=== PATIENT | male | born 1960 | race Caucasian/White ===

== ENCOUNTER 2016-05-21 19:46 | Emergency (ER) | payer OTHER ==
[~2016-05-21] VITALS: Ht 177.8 cm; Wt 86.1 kg
[~2016-05-21 19:46] MED LIST: AMIL5 PO; AMLO5TAB22 PO; CHLO25 PO; FURO20 PO; ONDA1TAB16 PO; OXYC10TA8 PO; XANA0.5T PO
[2016-05-21 19:54] VITALS: BP 140/78; PULSE 81; RESP 18; TEMP 98.5; O2SAT 97
[2016-05-21] MEDS ORDERED: ONDANSETRON HCL 4 MG/2 ML VIAL IVP ONE (20:15)
[2016-05-21] MEDS ORDERED: SODIUM CHLOR 0.9% 250 ML INJ 250 ML IV ONE (20:15)
[2016-05-21] MEDS ORDERED: SODIUM CHLORIDE 0.9% FLUSH 10 ML FLUSH IV FLUSH PRN (20:15)
[2016-05-21] MEDS ORDERED: LACTULOSE SYRUP 20 GM/30 ML CUP PO ONE (20:15)
[2016-05-21 20:19] LABS: AUTOMATED NEUTROPHIL # 2.9 TH/MM3 (1.8-7.7); BASOPHIL # 0.2 TH/MM3 (0-0.2); BASOPHIL % 4.2 % (0.0-2.0); EOSINOPHIL # 0.2 TH/MM3 (0-0.4); EOSINOPHIL % 3.9 % (0.0-4.0); HEMATOCRIT 39.8 % (39.0-51.0); LYMPH % 16.5 % (9.0-44.0); LYMPHOCYTE # 0.8 TH/MM3 (1.0-4.8); MEAN CELL VOLUME 94.3 FL (80.0-100.0); MEAN CORPUSCULAR HEMOGLOBIN 31.8 PG (27.0-34.0); MEAN CORPUSCULAR HGB CONC 33.7 % (32.0-36.0); MONO % 14.4 % (0.0-8.0); PLATELET COUNT 77 TH/MM3 (150-450); RED BLOOD COUNT 4.21 MIL/MM3 (4.50-5.90); WHITE BLOOD COUNT 4.8 TH/MM3 (4.0-11.0)
[2016-05-21 20:21] VITALS: BP 140/78; PULSE 89; RESP 18; TEMP 98.5; O2SAT 97
[2016-05-21 20:22] LABS: HEMO FLAGS AUTO DIFF
[2016-05-21 20:27] LABS: CHLORIDE 104 MEQ/L (98-107); POTASSIUM 3.4 MEQ/L (3.5-5.1); SODIUM (NA) 140 MEQ/L (136-145)
[2016-05-21 20:28] VITALS: O2SAT 97
[2016-05-21 20:31] LABS: ANION GAP 9 MEQ/L (5-15); BICARBONATE 26.8 MEQ/L (21.0-32.0); BLOOD UREA NITROGEN 10 MG/DL (7-18); INTERNATIONAL NORMALIZED RATIO 1.1 RATIO; PROTHROMBIN TIME - PATIENT 12.1 SEC (9.8-11.6)
[2016-05-21 20:34] LABS: ALT (GPT) 50 U/L (12-78); AST (GOT) 68 U/L (15-37); GLOMERULAR FILTRATION RATE 78 ML/MIN (>89)
[2016-05-21 20:36] LABS: TOTAL BILIRUBIN ADULT 1.7 MG/DL (0.2-1.0)
[2016-05-21 20:37] LABS: ALKALINE PHOSPHATASE 89 U/L (45-117)
[2016-05-21] MEDS ORDERED: LACT10SO PO (20:40)
[2016-05-21] MEDS ORDERED: FURO1TAB62 PO (20:40)
[2016-05-21] MEDS ORDERED: AMLO5 PO (20:40)
[2016-05-21] MEDS ORDERED: ALPR.5 PO (20:42)
[2016-05-21] MEDS ORDERED: OXYC-395 PO (20:42)
[2016-05-21] MEDS ORDERED: DIATRIZOATE MEGLUM/DIATRIZOATE SOD 9 ML CUP ONE (20:43)
[2016-05-21 20:54] LABS: PLATELET ESTIMATE SMEAR LOW (NORMAL); PLATELET MORPHOLOGY NORMAL (NORMAL); SCAN/DIFF AUTO DIFF CONFIRMED
[2016-05-21] MEDS ORDERED: IOHEXOL 350 MG/ML 10 ML VIAL (for RAD DIAG) IV ONE (22:20)
[2016-05-21 22:30] VITALS: BP 150/77; PULSE 100; RESP 20; O2SAT 96
--- NOTE | 2016-05-21 22:33 | RADHPO ---
EXAM DATE/TIME: 05/21/2016 22:03 CORRECTION Corrected on: May 21, 2016; [facility] COMPARISON: No previous studies available for comparison. INDICATIONS : Abdominal pain. Constipation. Difficulty urinating. IV CONTRAST: 100 cc Omnipaque 350 (iohexol) IV ORAL CONTRAST: Partial prescribed oral contrast ingested. RADIATION DOSE: 13.83 CTDIvol (mGy) MEDICAL HISTORY : Hypertension. SURGICAL HISTORY : Cholecystectomy. ENCOUNTER: Initial ACUITY: 4 - 6 days PAIN SCALE: 10/10 LOCATION: Bilateral abdomen and pelvis. TECHNIQUE: Volumetric scanning of the abdomen and pelvis was performed. Using automated exposure control and ad justment of the mA and/or kV according to patient size, radiation dose was kept as low as reasonably achievable to obtain optimal diagnostic quality images. FINDINGS: LOWER LUNGS: There is a minimal right effusion. There is mild scarring. LIVER: The liver is cirrhotic in appearance with diffuse heterogeneity and lobular contours with no definite focal mass there is a small amount of gas noted in the central biliary system with no definite dilat ation. Status post cholecystectomy. SPLEEN: Mild splenomegaly with no focal mass. There is a small amount of adjacent ascitic fluid. PANCREAS: Within normal limits. KIDNEYS: Normal in size and shape. There is no solid mass, stone or hydronephrosis. There are bilateral cysti c structures. ADRENAL GLANDS: Within normal limits. VASCULAR: There is no aortic aneurysm. BOWEL/MESENTERY: The gas pattern is abnormal with a moderate amount of stool in the colon. There is dilatation of port ions of the ascending and transverse colon with multiple air-fluid levels. There is no free air or dr ainable fluid collection. There are small fluid collections and portions of the pelvis. The small bow el is nondilated. There are several air-fluid levels. There is increased density and portions of the mesentery. ABDOMINAL WALL: Status post prior anterior abdominal wall hernia with apparent mesh in place. RETROPERITONEUM: There is no lymphadenopathy. BLADDER: No wall thickening or mass. REPRODUCTIVE: Within normal limits. INGUINAL: There is no lymphadenopathy or hernia. MUSCULOSKELETAL: Within normal limits for patient age. CONCLUSION: 1. Abnormal bowel gas pattern with dilatation of the ascending and transverse colon with multiple air -fluid levels. There is a moderate amount of stool present. There is mild apparent inflammatory lopez e in portions of the mesentery with small amount of free fluid. 2. Cirrhotic appearing liver with diffuse heterogeneity. 3. Status post cholecystectomy with small amount of central intrahepatic biliary air. 4. Mild splenomegaly. 5. Status post hernia repair with mesh in place. 6. Minimal right pleural effusion. Andrez Lam MD on May 21, 2016 at 22:24 Board Certified Radiologist. This report was verified electronically. Andrez Lam MD on May 21, 2016 at 22:52 Board Certified Radiologist. This report was verified electronically.
[2016-05-21] MEDS ORDERED: KETOROLAC TROMETHAMINE 30 MG/ML (IVP) VIAL IV PUSH ONE (22:45)
[2016-05-21] MEDS ORDERED: MAGNESIUM HYDROXIDE SUSP 30 ML CUP PO ONE (23:00)
[2016-05-21] MEDS ORDERED: SOD PHOSPHATE/SOD BIPHOSPHATE (ADULT) ENEMA 133ML RECTAL ONE (23:00)
--- NOTE | 2016-05-21 23:16 | PD ---
HPI Chief Complaint: GI Complaint Time Seen by Provider: 20:06 Travel History International Travel<30 days: No Contact w/Intl Traveler<30days: No Traveled to known affect area: No History of Present Illness HPI Patient is a 55 year old male who comes in complaining of abdominal pain. He says he has not had a bowel movement in 5-10 days. He says a few days ago he passed a small, hard piece of stool, but nothing else. He says this started after he took some oxycodone that a dentist gave him. He has not had any vomiting. He says he has pain throughout his abdomen and feels like something is "blocking" him. He denies fever or chills. PFSH Past Medical History Diminished Hearing: Yes Gastrointestinal Disorders: Yes Hypertension: Yes Immunizations Current: Yes Tetanus Vaccination: Unknown Influenza Vaccination: Yes ?: Not Past Surgical History Abdominal Surgery: Yes (BILE STENTS) Cholecystectomy: Yes Social History Alcohol Use: Yes (THIS WEEK) Tobacco Use: Yes Substance Use: No Allergies-Medications (Allergen,Severity, Reaction): Coded Allergies: No Known Allergies (Unverified , 05/22/16) Reported Meds & Prescriptions Reported Meds & Active Scripts Active Reported Oxycodone (Oxycodone HCl) 10 Mg Tab 10 Mg PO Q4H PRN Xanax (Alprazolam) 0.5 Mg Tab 0.5 Mg PO Q6H PRN Lactulose Liq (Lactulose) 10 Gm/15 Ml Soln 30 Ml PO Q6H PRN Norvasc (Amlodipine Besylate) 5 Mg Tab 5 Mg PO DAILY Lasix (Furosemide) 20 Mg Tab 20 Mg PO DAILY Review of Systems Except as stated in HPI: all other systems reviewed are Neg General / Constitutional: No: Fever, Chills HENT: No: Headaches Cardiovascular: No: Chest Pain or Discomfort Respiratory: No: Shortness of Breath Gastrointestinal: Positive: Nausea, Abdominal Pain, Constipation, No: Vomiting Genitourinary: No: Dysuria Skin: No Rash, No Change in Pigmentation Neurologic: No: Weakness, Dizziness Physical Exam Narrative GENERAL: Awake and alert, in no acute distress. SKIN: Focused skin assessment warm/dry. HEAD: Atraumatic. Normocephalic. EYES: Pupils equal and round. No scleral icterus. ENT: Mucous membranes pink and moist. NECK: Trachea midline. No JVD. CARDIOVASCULAR: Regular rate and rhythm. No murmur appreciated. RESPIRATORY: No accessory muscle use. Clear to auscultation. Breath sounds equal bilaterally. GASTROINTESTINAL: Abdomen soft, nondistended. Mild diffuse tenderness throughout the abdomen, no rebound or guarding. MUSCULOSKELETAL: No obvious deformities. No clubbing. No cyanosis. No edema. NEUROLOGICAL: Awake and alert. No obvious cranial nerve deficits. Motor grossly within normal limits. Normal speech. PSYCHIATRIC: Appropriate mood and affect; insight and judgment normal. Data Data Last Documented VS Vital Signs Date Time Temp Pulse Resp B/P Pulse Ox O2 Delivery O2 Flow Rate FiO2 05/22/16 00:27 20 05/22/16 00:20 95 134/74 05/21/16 22:30 96 Room Air 05/21/16 20:21 98.5 Orders Complete Blood Count With Diff (05/21/16 20:07) Comprehensive Metabolic Panel (05/21/16 20:07) Prothrombin Time / Inr (Pt) (05/21/16 20:07) Act Partial Throm Time (Ptt) (05/21/16 20:07) Ct Abd/Pel W Iv Contrast(Rout) (05/21/16 20:07) Iv Access Insert/Monitor (05/21/16 20:07) Ecg Monitoring (05/21/16 20:07) Oximetry (05/21/16 20:07) Ondansetron Inj (Zofran Inj) (05/21/16 20:15) Sodium Chloride 0.9% Flush (Ns Flush) (05/21/16 20:15) Lactulose Liq (Lactulose Liq) (05/21/16 20:15) Sodium Chlor 0.9% 250 Ml Inj (Ns 250 Ml (05/21/16 20:15) Oral Contrast - Adult (05/21/16 20:32) Diatrizoate Liq ( Gastroview Liq) (05/21/16 20:43) Iohexol 350 Inj (Omnipaque 350 Inj) (05/21/16 22:20) Ketorolac Inj (Toradol Inj) (05/21/16 22:45) Fleets Enema (Adult) (Fleets Enema (Adul (05/21/16 23:00) Magnesium Hydroxide Liq (Milk Of Magnesi (05/21/16 23:00) Peg (High)/E-Lyte Liq (Colyte Liq) (05/22/16 00:15) Labs Laboratory Tests Test 05/21/16 20:15 White Blood Count 4.8 TH/MM3 Red Blood Count 4.21 MIL/MM3 Hemoglobin 13.4 GM/DL Hematocrit 39.8 % Mean Corpuscular Volume 94.3 FL Mean Corpuscular Hemoglobin 31.8 PG Mean Corpuscular Hemoglobin 33.7 % Concent Red Cell Distribution Width 14.0 % Platelet Count 77 TH/MM3 Mean Platelet Volume 8.0 FL Neutrophils (%) (Auto) 61.0 % Lymphocytes (%) (Auto) 16.5 % Monocytes (%) (Auto) 14.4 % Eosinophils (%) (Auto) 3.9 % Basophils (%) (Auto) 4.2 % Neutrophils # (Auto) 2.9 TH/MM3 Lymphocytes # (Auto) 0.8 TH/MM3 Monocytes # (Auto) 0.7 TH/MM3 Eosinophils # (Auto) 0.2 TH/MM3 Basophils # (Auto) 0.2 TH/MM3 CBC Comment AUTO DIFF Differential Comment AUTO DIFF CONFIRMED Platelet Estimate LOW Platelet Morphology Comment NORMAL Prothrombin Time 12.1 SEC Prothromb Time International 1.1 RATIO Ratio Activated Partial 29.0 SEC Thromboplast Time Sodium Level 140 MEQ/L Potassium Level 3.4 MEQ/L Chloride Level 104 MEQ/L Carbon Dioxide Level 26.8 MEQ/L Anion Gap 9 MEQ/L Blood Urea Nitrogen 10 MG/DL Creatinine 1.00 MG/DL Estimat Glomerular Filtration 78 ML/MIN Rate Random Glucose 98 MG/DL Calcium Level 8.8 MG/DL Total Bilirubin 1.7 MG/DL Aspartate Amino Transf 68 U/L (AST/SGOT) Alanine Aminotransferase 50 U/L (ALT/SGPT) Alkaline Phosphatase 89 U/L Total Protein 7.8 GM/DL Albumin 3.2 GM/DL [facility] Medical Decision Making Medical Screen Exam Complete: Yes Emergency Medical Condition: Yes Medical Record Reviewed: Yes Differential Diagnosis Constipation versus obstruction versus colitis Narrative Course Patient is a 55-year-old male comes in complaining of abdominal pain and constipation. Exam shows mild diffuse tenderness throughout the abdomen. IV established, labs sent. Labs show an elevated total bilirubin, likely due to his chronic liver cirrhosis. Given lactulose. CT abdomen and pelvis performed shows a some dilatation of his colon with large amount of stool, some air-fluid levels. There is also mention of a small amount of free fluid. I spoke with Dr. Maguire, the radiologist, and he says he feels this is likely constipation and due to his liver disease. Last 24 hours Impressions Abdomen/Pelvis CT 05/21/162006 Signed Impressions: Service Date/Time: May 22:03 - CONCLUSION: 1. Abnormal bowel gas pattern with dilatation of the ascending and transverse colon with multiple air-fluid levels. There is a moderate amount of stool present. There is mild apparent inflammatory change in portions of the mesentery with small amount of free fluid. 2. Cirrhotic appearing liver with diffuse heterogeneity. 3. Status post cholecystectomy with small amount of central intrahepatic biliary air. 4. Mild splenomegaly. 5. Status post hernia repair with mesh in place. 6. Minimal right pleural effusion. Andrez Lam MD Patient given an enema and milk of magnesia. Patient had a small bowel movement, but still feels like he needs to go. Patient offered admission, however he says he would like to try and go home and have a bowel movement there. We'll give him a prescription for GoLYTELY. Patient told that if he does not have a bowel movement tomorrow or if he gets worse at any time he needs to return immediately. He understands these instructions and is comfortable with discharge at this time. Diagnosis Primary Impression: Constipation Qualified Code: K59.00 - Constipation, unspecified constipation type Patient Instructions: Constipation (ED), General Instructions Additional Instructions: If you do not have a bowel movement tomorrow after taking the medication, return to the ED immediately. If your symptoms worsen at any time, return immediately. Follow up with your doctor. Avoid opiate pain medication. Disposition: DISCHARGE HOME Condition: Stable Marilee Mccray MD May 21, 2016 23:16
[2016-05-22] MEDS ORDERED: PEG (High)/E-LYTE SOLN 4000 ML BTL PO ONE (00:15)
[2016-05-22 00:20] VITALS: BP 134/74
[2016-05-22 00:27] VITALS: RESP 20
== END 2016-05-22 00:29 | disposition home or self-care (01) ==
LOC: PHED 19:46
DX: K59.00 Constipation, unspecified (principal)
CPT/HCPCS: 74177; 80053; 85025; 85610; 85730; 96361; 96374; 96375; J1885; J2405; J7050; Q9963; Q9967

== ENCOUNTER 2016-05-22 12:16 | Inpatient (IN) | payer OTHER, MEDICARE ==
[2016-05-22] VITALS (14 sets, daily range): BP systolic 142–167; BP diastolic 66–84; PULSE 76–88; RESP 11–19; TEMP 98.2–98.6; O2SAT 90–97
[~2016-05-22] VITALS: Ht 177.8 cm; Wt 83.2 kg
[~2016-05-22 12:16] MED LIST changes: +ALPR.5 PO; -AMIL5 PO; +AMLO5 PO; -AMLO5TAB22 PO; -CHLO25 PO; +FURO1TAB62 PO; -FURO20 PO; +LACT10SO PO; -ONDA1TAB16 PO; +OXYC-395 PO; -XANA0.5T PO
--- NOTE | 2016-05-22 12:44 | PD ---
HPI Chief Complaint: GI Complaint Time Seen by Provider: 12:27 Travel History International Travel<30 days: No Contact w/Intl Traveler<30days: No Traveled to known affect area: No History of Present Illness HPI 55 year-old man who presents to the emergency department complaining of worsening abdominal pain and distention. States he's not had a bowel movement for the past 5 or 6 days ever since he took oxycodone as prescribed by his dentist. He's had worsening severe abdominal pain. He went to the emergency room last night and had a CT scan that showed abnormal bowel gas pattern with dilatation of the ascending and transverse colon of multiple air-fluid levels a moderate amount of stool. Some inflammatory changes and portions of the mesentery and a small amount of free fluid. Patient has a history of cirrhosis , he takes Lasix and lactulose. He was treated yesterday with an enema and given a prescription for GoLYTELY. He states he started out last night but then started having vomiting and worsening abdominal distention and so he returned today. States he's had some trouble constipation the remote past, not regularly. His only abdominal surgery was a previous open cholecystectomy. History Past Medical History Narrative Medical Cirrhosis Hypertension Social History Alcohol Use: Yes (THIS WEEK) Tobacco Use: Yes Allergies-Medications (Allergen,Severity, Reaction): Coded Allergies: No Known Allergies (Unverified , 05/22/16) Reported Meds & Prescriptions Reported Meds & Active Scripts Active Reported Oxycodone (Oxycodone HCl) 10 Mg Tab 10 Mg PO Q4H PRN Xanax (Alprazolam) 0.5 Mg Tab 0.5 Mg PO Q6H PRN Lactulose Liq (Lactulose) 10 Gm/15 Ml Soln 30 Ml PO Q6H PRN Norvasc (Amlodipine Besylate) 5 Mg Tab 5 Mg PO DAILY Lasix (Furosemide) 20 Mg Tab 20 Mg PO DAILY Review of Systems Except as stated in HPI: all other systems reviewed are Neg Physical Exam Narrative GENERAL: 55 year-old man, uncomfortable appearing, nontoxic. SKIN: Focused skin assessment warm/dry. CARDIOVASCULAR: Regular rate and rhythm. No murmur appreciated. RESPIRATORY: No accessory muscle use. Clear to auscultation. Breath sounds equal bilaterally. GASTROINTESTINAL: Abdomen with tense distention, diffuse tenderness. Well- healed right upper quadrant incision. MUSCULOSKELETAL: No obvious deformities. Chronic pitting edema both lower extremities. Dark skin discoloration both extremities. NEUROLOGICAL: Awake and alert. No obvious cranial nerve deficits. Motor grossly within normal limits. Normal speech. PSYCHIATRIC: Appropriate mood and affect; insight and judgment normal. Data Data Last Documented VS Vital Signs Date Time Temp Pulse Resp B/P Pulse Ox O2 Delivery O2 Flow Rate FiO2 05/22/16 13:15 16 05/22/16 12:23 98.2 87 158/[address] Abd/Pel W/O Iv Contrast (05/22/16 ) Complete Blood Count With Diff (05/22/16 12:38) Comprehensive Metabolic Panel (05/22/16 12:38) Lipase (05/22/16 12:38) Lactic Acid (05/22/16 12:38) Act Partial Throm Time (Ptt) (05/22/16 12:38) Prothrombin Time / Inr (Pt) (05/22/16 12:38) Iv Access Insert/Monitor (05/22/16 12:38) Sodium Chlorid 0.9% 500 Ml Inj (Ns 500 M (05/22/16 12:45) Ondansetron Inj (Zofran Inj) (05/22/16 12:45) Morphine Inj (Morphine Inj) (05/22/16 12:45) Drug Screen, Random Urine (05/22/16 13:56) Urinalysis - C+S If Indicated (05/22/16 13:57) Consult General Surgery (05/22/16 ) Midazolam Inj (Versed Inj) (05/22/16 14:00) Maicol-Gastric Tube Insert/Mon (05/22/16 13:59) (Hub Use Only)Inp Phy Cons/Ref (05/22/16 ) Labs Laboratory Tests Test 05/22/16 05/22/16 12:40 12:50 White Blood Count 5.5 TH/MM3 Red Blood Count 4.51 MIL/MM3 Hemoglobin 14.2 GM/DL Hematocrit 42.6 % Mean Corpuscular Volume 94.4 FL Mean Corpuscular Hemoglobin 31.4 PG Mean Corpuscular Hemoglobin 33.3 % Concent Red Cell Distribution Width 14.3 % Platelet Count 94 TH/MM3 Mean Platelet Volume 8.4 FL Neutrophils (%) (Auto) 80.7 % Lymphocytes (%) (Auto) 7.3 % Monocytes (%) (Auto) 9.2 % Eosinophils (%) (Auto) 1.0 % Basophils (%) (Auto) 1.8 % Neutrophils # (Auto) 4.4 TH/MM3 Lymphocytes # (Auto) 0.4 TH/MM3 Monocytes # (Auto) 0.5 TH/MM3 Eosinophils # (Auto) 0.1 TH/MM3 Basophils # (Auto) 0.1 TH/MM3 CBC Comment AUTO DIFF Differential Comment AUTO DIFF CONFIRMED Platelet Estimate LOW Platelet Morphology Comment NORMAL Prothrombin Time 12.8 SEC Prothromb Time International 1.2 RATIO Ratio Activated Partial 26.3 SEC Thromboplast Time Sodium Level 139 MEQ/L Potassium Level 3.7 MEQ/L Chloride Level 102 MEQ/L Carbon Dioxide Level 23.2 MEQ/L Anion Gap 14 MEQ/L Blood Urea Nitrogen 11 MG/DL Creatinine 1.00 MG/DL Estimat Glomerular Filtration 78 ML/MIN Rate Random Glucose 104 MG/DL Calcium Level 9.0 MG/DL Total Bilirubin 2.5 MG/DL Aspartate Amino Transf 79 U/L (AST/SGOT) Alanine Aminotransferase 53 U/L (ALT/SGPT) Alkaline Phosphatase 93 U/L Total Protein 7.9 GM/DL Albumin 3.2 GM/DL Lipase 126 U/L Lactic Acid Level 2.9 mmol/L MDM Medical Decision Making Medical Screen Exam Complete: Yes Emergency Medical Condition: Yes Interpretation(s) LABS: CBC remarkable for platelet count of 94, absolute lymphocyte count of 400 CMP remarkable for total bili 2.5, Lactate 2.9 Lipase normal INR 1.2 CT abdomen and pelvis: Abnormal colon with distended: Abrupt caliber change in the region of the distal sigmoid colon are per rectum. Worsened: Is an abnormal configuration in the caliber changes very abrupt. Uncertain etiology. Large amount of stool proximal to the caliber change. Abnormal configuration of the small bowel suspicious for adhesions. Thickening partially calcified or on the anterior abdominal wall which may be related to prior surgery. Cirrhosis. Bilateral pleural effusions. Differential Diagnosis Bowel obstruction, obstipation, colitis, SBP, ascites, other Narrative Course Medical decision making INITIAL: This a 55-year-old man who presents to the emergency department worsening abdominal pain, constipation, and distention. Review of CT from earlier shows findings a could be concerning for bowel obstruction. Patient asked about worsening distention and vomiting with attempts at using GoLYTELY. At this point, I think it's reasonable to repeat the CT scan to see if there is any kind of surgical emergency developing despite the fact that he's had one very recently. We'll avoid a second dose of IV contrast in 24 hours. We'll give a small dose of IV fluids. Pain medicine. Check labs. Admission. Physician Communication Physician Communication Spoke with Dr. Astorga. He reviewed CT scan. Recommends admission to [place], avoid opiates, he will consult on patient. Diagnosis Primary Impression: Large bowel obstruction Jj Barrientos MD May 22, 2016 12:44
[2016-05-22] MEDS ORDERED: MORPHINE SULFATE 4 MG/ML INJ IV PUSH ONE (12:45)
[2016-05-22] MEDS ORDERED: ONDANSETRON HCL 4 MG/2 ML VIAL IV ONE (12:45)
[2016-05-22] MEDS ORDERED: SODIUM CHLORID 0.9% 500 ML INJ 500 ML IV ONE (12:45)
[2016-05-22 12:52] LABS: AUTOMATED NEUTROPHIL # 4.4 TH/MM3 (1.8-7.7); BASOPHIL # 0.1 TH/MM3 (0-0.2); BASOPHIL % 1.8 % (0.0-2.0); EOSINOPHIL # 0.1 TH/MM3 (0-0.4); HEMATOCRIT 42.6 % (39.0-51.0); LYMPH % 7.3 % (9.0-44.0); LYMPHOCYTE # 0.4 TH/MM3 (1.0-4.8); MEAN CELL VOLUME 94.4 FL (80.0-100.0); MEAN CORPUSCULAR HEMOGLOBIN 31.4 PG (27.0-34.0); MEAN CORPUSCULAR HGB CONC 33.3 % (32.0-36.0); MONO % 9.2 % (0.0-8.0); NEUT % 80.7 % (16.0-70.0); PLATELET COUNT 94 TH/MM3 (150-450); RED BLOOD COUNT 4.51 MIL/MM3 (4.50-5.90); RED CELL DISTRIBUTION WIDTH 14.3 % (11.6-17.2); WHITE BLOOD COUNT 5.5 TH/MM3 (4.0-11.0)
[2016-05-22 12:54] LABS: HEMO FLAGS AUTO DIFF
[2016-05-22 13:06] LABS: CHLORIDE 102 MEQ/L (98-107); POTASSIUM 3.7 MEQ/L (3.5-5.1); SODIUM (NA) 139 MEQ/L (136-145)
[2016-05-22 13:10] LABS: ANION GAP 14 MEQ/L (5-15); BICARBONATE 23.2 MEQ/L (21.0-32.0)
[2016-05-22 13:12] LABS: APTT (PATIENT) 26.3 SEC (24.3-30.1); INTERNATIONAL NORMALIZED RATIO 1.2 RATIO; PROTHROMBIN TIME - PATIENT 12.8 SEC (9.8-11.6)
[2016-05-22 13:13] LABS: ALT (GPT) 53 U/L (12-78); AST (GOT) 79 U/L (15-37); GLOMERULAR FILTRATION RATE 78 ML/MIN (>89)
[2016-05-22 13:15] LABS: TOTAL BILIRUBIN ADULT 2.5 MG/DL (0.2-1.0)
[2016-05-22 13:16] LABS: ALKALINE PHOSPHATASE 93 U/L (45-117)
[2016-05-22 13:22] LABS: BLOOD UREA NITROGEN 11 MG/DL (7-18)
[2016-05-22 13:28] LABS: PLATELET ESTIMATE SMEAR LOW (NORMAL); PLATELET MORPHOLOGY NORMAL (NORMAL); SCAN/DIFF AUTO DIFF CONFIRMED
--- NOTE | 2016-05-22 13:31 | RADHPO ---
EXAM DATE/TIME: 05/22/2016 12:51 [facility] COMPARISON: CT ABDOMEN & PELVIS W CONTRAST, May 21, 2016, 22:03. INDICATIONS : Increasing abdominal pain and distention. Constipation. ORAL CONTRAST: No oral contrast ingested. RADIATION DOSE: 19.94 CTDIvol (mGy) MEDICAL HISTORY : Cirrhosis. Hypertension. SURGICAL HISTORY : Cholecystectomy. ENCOUNTER: [facility] ACUITY: 4 - 6 days PAIN SCALE: 8/10 LOCATION: Abdomen. TECHNIQUE: Volumetric scanning of the abdomen and pelvis was performed. Using automated exposure control and ad justment of the mA and/or kV according to patient size, radiation dose was kept as low as reasonably achievable to obtain optimal diagnostic quality images. FINDINGS: LOWER LUNGS: There are trace bilateral pleural effusions with atelectasis. LIVER: Liver has a lobulated contour characteristic of cirrhosis. There is low density adjacent to the falci form ligament. There is a small amount of pneumobilia within the left lobe. Gallbladder appears absen t. SPLEEN: Enlarged measuring 16.2 cm in length. No focal lesion is seen. PANCREAS: Within normal limits. KIDNEYS: There are bilateral low-density lesions unchanged from yesterday's examination. The largest in each k idney have features characteristic of cysts. No hydronephrosis or stone is seen. ADRENAL GLANDS: Within normal limits. VASCULAR: There is no aortic aneurysm. There is severe atherosclerotic disease. There are varices in the right lower quadrant. BOWEL/MESENTERY: Small hiatal hernia is present. The small bowel has an atypical configuration suspicious for areas of adhesions. Small bowel is mildly distended. Terminal ileum is not clearly visualized. The colon is d ilated with caliber change in the distal sigmoid colon near the rectosigmoid junction. At the caliber change there is very abrupt change in caliber and the upper rectum has an unusual configuration with possible mild wall thickening. There is induration in the meso rectal fat. There is a focal outpouch ing of a portion of the colon wall through one of the retroperitoneal fascial planes in the right mid abdomen. ABDOMINAL WALL: There is calcification and soft tissue density along the midline anterior abdominal wall near the umb ilicus level. This may be related to prior hernia repair. RETROPERITONEUM: There is no lymphadenopathy. BLADDER: No wall thickening or mass. Urinary bladder demonstrates displacement to the right and may be adheren t to the abnormal soft tissue and calcification on the anterior abdominal wall. REPRODUCTIVE: Within normal limits. INGUINAL: There is no lymphadenopathy or hernia. MUSCULOSKELETAL: There are degenerative changes of the spine. No acute osseous abnormality is seen. CONCLUSION: 1. Abnormal colon with distended colon and abrupt caliber change in the region of the distal sigmoid colon or upper rectum. This portion of the colon has an abnormal configuration and the caliber change is very abrupt from an uncertain etiology. There is a large amount of stool proximal to the caliber change. Consider evaluation with direct visualization/endoscopy or contrast enema for further evaluat ion. 2. Abnormal configuration of the small bowel suspicious for areas of adhesions. Additionally, there i s a thickened and partially calcified area along the anterior abdominal wall which may be related to prior surgery. Urinary bladder is also displaced to the right side of the pelvis and may be adherent to the abnormal wall thickening along the anterior abdominal wall. 3. Liver is cirrhotic and there are findings indicative of portal hypertension including splenomegaly and varices. 4. Trace bilateral pleural effusions. Emanuel Calderon MD on May 22, 2016 at 13:17 Board Certified Radiologist. This report was verified electronically.
[2016-05-22] MEDS ORDERED: MIDAZOLAM HCL 2 MG/2 ML VIAL IV PUSH ONE (14:00)
[2016-05-22] MEDS ORDERED: SODIUM CHLORIDE 0.9% FLUSH 10 ML FLUSH IV FLUSH PRN (14:15)
[2016-05-22] MEDS ORDERED: BISACODYL 10 MG SUPP RECTAL PRN (14:15)
[2016-05-22] MEDS ORDERED: NALOXONE HCL 0.4 MG/ML AMP IV PRN (14:15)
[2016-05-22] MEDS ORDERED: MORPHINE SULFATE 4 MG/ML INJ IV PRN ×3 (14:15)
[2016-05-22] MEDS ORDERED: ONDANSETRON HCL 4 MG/2 ML VIAL IVP PRN (14:15)
[2016-05-22] MEDS ORDERED: ONDANSETRON HCL 4 MG/2 ML VIAL IV PUSH ONE (14:30)
[2016-05-22] MEDS ORDERED: hydrALAZINE HCL 20 MG/ML VIAL IV PRN (14:30)
[2016-05-22] MEDS ORDERED: ENALAPRILAT 1.25 MG/ML VIAL IV PRN (14:30)
[2016-05-22] MEDS ORDERED: LORazepam 2 MG/ML VIAL IV PUSH PRN (15:00)
--- NOTE | 2016-05-22 15:00 | HHI.HP ---
[facility] Nemo Early MD Admission Diagnosis large bowel obstruction Diagnoses: Chief Complaint: Abdominal pain Travel History International Travel<30 Days: No Contact w/Intl Traveler <30 Da: No Traveled to Known Affected Are: No History of Present Illness This is a 55 year-old man who returns to the emergency department complaining of worsening abdominal pain and distention. States he's not had a bowel movement for the past 5 or 6 days ever since he took oxycodone as prescribed by his dentist. He's had worsening severe diffuse abdominal pain. He went to the emergency room last night and had a CT scan that showed abnormal bowel gas pattern with dilatation of the ascending and transverse colon of multiple air- fluid levels and moderate amount of stool. He was treated yesterday with an enema and had a small bowel movement and offered admission which he declined. He was then given a prescription for GoLYTELY. He states he started out last night but then started having vomiting and worsening abdominal distention and so he returned today. He usually has regular bowel movement because he is on lactulose. His only abdominal surgery was a previous open cholecystectomy. Gen. surgery was contacted and recommended [place] admission and decompression. When NGT was inserted, he vomited the previously ingested GoLYTELY but later on he had bloody return. Patient states he had EGD 3 months ago which showed small varices. Also contacted his occupational therapist assistant who will see him in consult Review of Systems Constitutional: DENIES: Diaphoretic episodes, Fatigue, Fever, Weight gain, Weight loss, Chills, Dizziness, Change in appetite, Night Sweats Endocrine: DENIES: Heat/cold intolerance, Polydipsia, Polyuria, Polyphagia Eyes: DENIES: Blurred vision, Diplopia, Vision loss, Photosensitivity Ears, nose, mouth, throat: DENIES: Tinnitus, Vertigo, Throat pain, Hoarseness, Epistaxis, Odynophagia Respiratory: DENIES: Cough, Wheezing, Hemoptysis, Sputum production, Shortness of breath Cardiovascular: DENIES: Chest pain, Palpitations, Syncope, Dyspnea on Exertion , PND, Lower Extremity Edema, Orthopnea, Claudication Gastrointestinal: COMPLAINS OF: Abdominal pain, Constipation, Nausea, Vomiting , DENIES: Black stools, Bloody stools, Diarrhea, Difficulty Swallowing, Anorexia Genitourinary: DENIES: Urinary frequency, Urinary incontinence, Urgency, Hematuria, Dysuria, Nocturia, Penile Discharge Integumentary: DENIES: Rash Neurologic: DENIES: Headache, Localized weakness, Seizures, Tremor, Poor Balance Psychiatric: DENIES: Anxiety, Confusion, Depression, Hallucinations, Agitation , Suicidal Ideation, Homicidal Ideation, Delusions Past Family Social History Past Medical History Hypertension Past Surgical History As previously mentioned Reported Medications Oxycodone (Oxycodone HCl) 10 Mg Tab 10 Mg PO Q4H PRN Xanax (Alprazolam) 0.5 Mg Tab 0.5 Mg PO Q6H PRN Lactulose Liq (Lactulose) 10 Gm/15 Ml Soln 30 Ml PO Q6H PRN Norvasc (Amlodipine Besylate) 5 Mg Tab 5 Mg PO DAILY Lasix (Furosemide) 20 Mg Tab 20 Mg PO DAILY Allergies: Coded Allergies: No Known Allergies (Unverified , 05/22/16) Family History Coronary artery disease Social History Occasional tobacco use. Quit alcohol use 10-12 years ago Physical Exam Vital Signs Vital Signs Date Time Temp Pulse Resp B/P Pulse Ox O2 Delivery O2 Flow Rate FiO2 05/22/16 14:00 81 16 143/66 95 Room Air 05/22/16 13:15 16 05/22/16 12:23 98.2 87 16 158/84 94 Physical Exam GENERAL: This is a well-nourished, well-developed patient, in mild distress due to NGT which has bloody return SKIN: No rashes, ecchymoses or lesions. Cool and dry. Spider nevi HEAD: Atraumatic. Normocephalic. No temporal or scalp tenderness. EYES: Pupils equal round and reactive. Extraocular motions intact. No scleral icterus. No injection or drainage. ENT: Nose without bleeding, purulent drainage or septal hematoma. Throat without erythema, tonsillar hypertrophy or exudate. Uvula midline. Airway patent. NECK: Trachea midline. No JVD or lymphadenopathy. Supple, nontender, no meningeal signs. CARDIOVASCULAR: Regular rate and rhythm without murmurs, gallops, or rubs. RESPIRATORY: Clear to auscultation. Breath sounds equal bilaterally. No wheezes , rales, or rhonchi. GASTROINTESTINAL: Abdomen with normoactive bowel sounds. It is distended and tense tender in the lower quadrants. No guarding. MUSCULOSKELETAL: Extremities without clubbing, cyanosis with bilateral pitting edema which is chronic per patient. No joint tenderness, effusion, or edema noted. No calf tenderness. Negative Homans sign bilaterally. NEUROLOGICAL: Awake and alert. Cranial nerves II through XII intact. Motor and sensory grossly within normal limits. Five out of 5 muscle strength in all muscle groups. Normal speech. Laboratory Laboratory Tests Test 05/22/16 05/22/16 12:40 12:50 White Blood Count 5.5 Red Blood Count 4.51 Hemoglobin 14.2 Hematocrit 42.6 Mean Corpuscular Volume 94.4 Mean Corpuscular Hemoglobin 31.4 Mean Corpuscular Hemoglobin 33.3 Concent Red Cell Distribution Width 14.3 Platelet Count 94 Mean Platelet Volume 8.4 Neutrophils (%) (Auto) 80.7 Lymphocytes (%) (Auto) 7.3 Monocytes (%) (Auto) 9.2 Eosinophils (%) (Auto) 1.0 Basophils (%) (Auto) 1.8 Neutrophils # (Auto) 4.4 Lymphocytes # (Auto) 0.4 Monocytes # (Auto) 0.5 Eosinophils # (Auto) 0.1 Basophils # (Auto) 0.1 CBC Comment AUTO DIFF Differential Comment AUTO DIFF CONFIRMED Platelet Estimate LOW Platelet Morphology Comment NORMAL Prothrombin Time 12.8 Prothromb Time International 1.2 Ratio Activated Partial 26.3 Thromboplast Time Sodium Level 139 Potassium Level 3.7 Chloride Level 102 Carbon Dioxide Level 23.2 Anion Gap 14 Blood Urea Nitrogen 11 Creatinine 1.00 Estimat Glomerular Filtration 78 Rate Random Glucose 104 Calcium Level 9.0 Total Bilirubin 2.5 Aspartate Amino Transf 79 (AST/SGOT) Alanine Aminotransferase 53 (ALT/SGPT) Alkaline Phosphatase 93 Total Protein 7.9 Albumin 3.2 Lipase 126 Lactic Acid Level 2.9 Result Diagram: 05/22/16 1240 05/22/16 1240 Imaging Last Impressions Abdomen/Pelvis CT 05/22/16 0000 Signed Impressions: Service Date/Time: Sunday, May 22, 2016 12:51 - CONCLUSION: 1. Abnormal colon with distended colon and abrupt caliber change in the region of the distal sigmoid colon or upper rectum. This portion of the colon has an abnormal configuration and the caliber change is very abrupt from an uncertain etiology. There is a large amount of stool proximal to the caliber change. Consider evaluation with direct visualization/endoscopy or contrast enema for further evaluation. 2. Abnormal configuration of the small bowel suspicious for areas of adhesions. Additionally, there is a thickened and partially calcified area along the anterior abdominal wall which may be related to prior surgery. Urinary bladder is also displaced to the right side of the pelvis and may be adherent to the abnormal wall thickening along the anterior abdominal wall. 3. Liver is cirrhotic and there are findings indicative of portal hypertension including splenomegaly and varices. 4. Trace bilateral pleural effusions. Emanuel Calderon MD Assessment and Plan Problem List: (1) Large bowel obstruction ICD Code: K56.60 Status: Acute (2) Constipation ICD Code: K59.00 Status: Acute Assessment and Plan This is a 55 year-old man who presents with worsening abdominal pain and distention, constipation, nausea and vomiting. CT scan that showed abnormal bowel gas pattern with dilatation of the ascending and transverse colon of multiple air-fluid levels and moderate amount of stool. Bowel obstruction. Patient will be admitted to ICU for close monitoring. Keep nothing by mouth, start IV fluids and IV Protonix. Continue NGT for decompression. Consult general surgery and gastroenterology Elevated lactic acid secondary to above. Monitor Constipation secondary to narcotic use. Start Dulcolax suppository GI bleed likely related to NGT trauma with a history of liver cirrhosis and thrombocytopenia. We'll monitor and repeat blood counts and consider Sandostatin drip and platelet transfusion Elevated AST with a history of hepatitis C cirrhosis. Restart outpatient medications as appropriate Hypertension. Hold BP medications for now. Monitor with as needed antihypertensives. DVT prophylaxis with SCD and early ambulation. Chemical prophylaxis continue indicated at this time Discussed Condition With Patient Physician Certification 2 Midnight Certification Type: Admission for Inpatient Services Order for Inpatient Services The services are ordered in accordance with Medicare regulations or non- Medicare payer requirements, as applicable. In the case of services not specified as inpatient-only, they are appropriately provided as inpatient services in accordance with the 2-midnight benchmark. Estimated LOS (days): 2 days is the estimated time the patient will need to remain in the hospital, assuming treatment plan goals are met and no additional complications. Post-Hospital Plan: Not yet determined Joey Neri MD May 22, 2016 15:00
[2016-05-22] MEDS: PANTOPRAZOLE SODIUM 40 MG VIAL IV PUSH SCH (15:06)
[2016-05-22] MEDS: NS + KCL 20 MEQ INJ 1,000 ML IV SCH ×3 (15:06→16:44)
[2016-05-22] MEDS ORDERED: CHLORHEXIDINE GLUCONATE 2 % 1 PACK (2 CLOTHS)(extra cloths) TOPICAL PRN (16:45)
--- NOTE | 2016-05-22 17:43 | PD.CONS ---
GI Consult GI Consult See formal GI consult dictated today also ([id number]) ASSESSMENT/PLAN: 1. Upper GI bleed (blood in NG)- suspect NG trauma to the portal gastropathy rather than varices 2. 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 Cirrhosis and Hep C 4. Constipation and abd distension-obstruction vs opiate induced constipation PLAN: 1. PPI 2. Surgery has seen the pt and has ordered enemas and mag citrate. If not helpful consider a Gastrografin enema and /or Relistor 3. If endoscopy is needed (EGD/Flex sig) he will need to be transferred to the the [facility] It was a pleasure seeing Juaquin Chaidez Thank you for this consult. Entered by: Feliz Hsieh MD May 22, 2016 17:42
[2016-05-22] MEDS ORDERED: MAGNESIUM CITRATE SOLN 300 ML BTL NG ONE (18:00)
--- NOTE | 2016-05-22 18:17 | MB ---
cc: NICOLASA COOK MD DATE OF CONSULTATION 05/22/16 REASON FOR CONSULTATION Abdominal distension, possible large bowel obstruction, cirrhosis. HISTORY OF PRESENT ILLNESS This 55-year-old male who has been seen here before in the past comes with abdominal pain and distension. The patient states he has not had a bowel movement in about six days. The CAT scan revealed dilated small and large bowel with some air-fluid levels and massive amounts of stool. The patient had a small bowel movement after enema, but then that was that. It should be noted that the patient is a chronic abuser of Oxycodone and he has been on it for years from what I can see in the computer here, yet he states that he had a dental procedure and he only took it for about five days. This is clearly not true and I do not know why the patient is making this up. Nonetheless, he is now admitted to the hospital. Question arises if it is a bowel obstruction. In addition, the patient has known cirrhosis, Hepatitis C, is an admitted drinker and smoker and was diagnosed in the past with varices which of course does not help with this picture. The patient is now in the ICU and there is a small amount of dark blood coming from the NG tube. PAST SURGICAL HISTORY only cholecystectomy PAST MEDICAL HISTORY OxyContin abuse. The patient Is on lactulose daily. He is hypertensive on Norvasc and Lasix. SOCIAL HISTORY He says he quit drinking about 12 years ago. Smokes. PHYSICAL EXAMINATION GENERAL: A 55-year-old male HEENT: Normocephalic. No trauma to the head. Pupils equally reactive. Extraocular muscles intact. Sclerae are nonicteric. NECK: Bilateral carotid pulses. No bruits. CHEST: Bilateral breath sounds decreased over both apices consistent with early COPD. HEART: Regular rhythm. ABDOMEN: Soft, distended, hypoactive bowel sound sounds consistent with paralytic ileus. No masses. No rebound or guarding. EXTREMITIES: Grossly within normal limits with some edema in the lower extremities consistent with fluid retention. The patient has proximal distal pulses. No signs of vascular deficit. BACK: Normal. NEUROLOGIC: The patient is grossly intact. IMPRESSION/RECOMMENDATIONS I reviewed laboratory and diagnostic procedures. This gentleman has a classic picture of opioid-induced constipation and opioid abuse. The patient will need at this point NG tube because he is not tolerating p.o. laxatives and I am going to put the bottle or two of magnesium citrate through this. In addition, the patient will need some soap suds enemas. 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 Therefore, I do not believe the patient has a bowel obstruction. This is a functional problem and should resolve. It should be noted that patient had about five years ago a colonoscopy, according to him, which was negative. Surgery should be avoided at any cost in this gentleman considering his cirrhosis. He is a high-risk candidate in the presence of thrombocytopenia this can be made only worse. Therefore, every attempt should be made not for the patient to need any surgery at this time. This is a functional problem and resolvable by conservative means. I will continue to follow patient with you. Critical care time 40 minutes. Nicolasa AGGARWAL /5:52 PM /6:04 PM
--- NOTE | 2016-05-22 19:04 | MB ---
cc: SHERWIN PRINCE JOSE R. MD PASRICHA, SUNIL P. M.D. DATE OF CONSULTATION: 05/22/2016. REASON FOR CONSULTATION: I was asked to see this patient in consultation by Dr. Neri for evaluation of upper GI bleed and abdominal distention. DATE OF : 1960. HISTORY OF PRESENT ILLNESS: The patient is a pleasant 25-year-old white male who I have been seeing in the office for cirrhosis of the liver thought to be the basis of hepatitis C and he states that he is on a transplant list in [place]. He has also had a porcelain gallbladder and this was taken out, complicated by a bile leak and damage to the bile duct requiring numerous biliary stents including a metallic stent at one point and this was done in [place]. He has been having elevated MELD scores and has been followed up in [place] in regards to his transplant program. He has also had esophageal varices and the last endoscopy I did was August of 2015 and it showed small grade 1 varices and portal hypertension of the stomach. He states his last colonoscopy was about five years ago and no polyps were noted and we had requested in this regard but we have not been able to get records. The patient also has some low grade hepatic encephalopathy treated with lactulose. Xifaxan was not tolerated. He has also had problems with intermittent abdominal pain and his previous MRIs and CT scans have shown several chronic changes including splenomegaly, varices of the abdominal wall and postoperative seroma involving the right lateral peritoneal cavity and abdominal wall. Apparently he had some teeth extracted and the dentist/oral surgeon gave him some narcotics. He took all twelve and became extremely constipated. He has essentially had no bowel movements for six days. The narcotic pills given were OxyContin. He tried MiraLax, Dulcolax, and with this he only passed small bowel movements. He called the office yesterday and we suggested drinking a half bottle of magnesium citrate and if no results in a few hours drink another half bottle. He did both bottles and nothing happened. We told him that if the symptoms got worse such as nausea or vomiting, abdominal bloating or pain, he needed to go to the emergency room and apparently he presented to the emergency room yesterday. He had a CT scan which showed air-fluid levels in the ascending colon and the transverse colon cut off in the rectal area. He was offered admission but he did not want this and he was given GoLYTELY. He said he took the GoLYTELY at home and it worsened the abdominal distention and he had vomiting. The vomiting was clear (on the basis of the GoLYTELY). Because of the vomiting and hopefully decrease his abdominal distention, a nasogastric tube was placed. Prior to this, he had no vomiting of blood however after the nasogastric tube was placed (but the initial withdrawal was clear), red blood came out and we have been asked to evaluate this. The patient has no hematemesis. There has been no melena or hematochezia. No fever or chills. He had diffuse abdominal discomfort and pain and distention and it was crampy in nature. No heartburn issues. He also has hypertension he states. PAST MEDICAL AND SURGICAL HISTORY: 1. Cirrhosis thought related to hepatitis C. 2. Porcelain gallbladder. 3. He has had bile leak and numerous biliary stents in the past. 4. Hypertension. 5. Recent dental surgery 6. Several chronic changes on his CT scan. 7. Abdominal pain in the past. 8. Abnormal liver function tests 9. Small grade 1 esophageal varices. 10. Portal hypertension. 11. Skin rash 12. Esophagitis. 13. Cholelithiasis. 14. Constipation in the past. 15. Nausea. 16. Thrombocytopenia. 17. Cholecystectomy complicated by bile leaks and biliary stents. MEDICATIONS AN OUTPATIENT: 1. Lasix. 2. Norvasc. 3. Xanax. 4. Omeprazole. 5. Xifaxan which he cannot tolerate. 6. Lactulose. ALLERGIES: NO KNOWN DRUG ALLERGIES. FAMILY HISTORY: His family history is significant for gallstones but no colon cancer or colon polyps. SOCIAL HISTORY: He does not currently smoke. He never drank heavily. REVIEW OF SYSTEMS: CONSTITUTIONAL: No weight loss or fever or chills. CARDIOPULMONARY: No chest pain, palpitations or shortness of breath. GASTROINTESTINAL: Please see above. Otherwise an unremarkable ten-point review of systems. PHYSICAL EXAMINATION: VITAL SIGNS: Blood pressure is 147/76, pulse of 77, RR-14, temperature is afebrile at 98.6. GENERAL: In general, he is a 55-year-old white male who looks older than his stated age who is in no acute GI distress. He currently has an nasogastric tube with pinkish-reddish in the aspirate when I lavage it, it clears. HEAD, EYES, EARS, NOSE, THROAT: Pupils equal, round and reactive to light. No obvious scleral icterus. The oropharynx had no dental caries. No tongue deviation. No Candidal lesions. Hearing was intact. NECK: The neck is supple. No thyromegaly or lymphadenopathy. LUNGS: Clear to auscultation and percussion. HEART: Regular rate and rhythm. No gross murmurs are heard. ABDOMEN: Abdomen distended. Bowel sounds are present but minimal. Minimal tenderness but no rebound tenderness. No organomegaly. I could not tell if there is any ascites. The abdomen was tympanitic. No guarding. EXTREMITIES: No cyanosis or clubbing. Minimal pedal edema. NEUROLOGIC: No gross cranial nerve deficits. There is no asterixis. SKIN: The skin is warm and moist. Spider angiomata also noted. DATABASE: Laboratories today revealed a prothrombin time of 12.8, elevated. INR 1.2. PTT of 26.3. BUN 11, creatinine 1.0. Lactic acid elevated at 2.9. Total bilirubin 2.5. SGOT of 79, elevated. SGPT of 53, normal. Alkaline phosphatase of 93. Albumin of 3.2, low. Lipase 126, which is normal. Potassium of 3.7. Sodium 139. Carbon dioxide 102. GFR is 78, which is low. His hemoglobin is 14.2, white blood cell count is 5500, hematocrit 42.6, MCV 94.4, platelet count of 94,000. A CT scan done yesterday revealed some dilatation of the ascending colon and transverse colon with multiple air fluid levels. There is a mild amount of stool present. There is some mild amount of stool present. There is some mild fatty change in the mesentery and a small amount of fluid. There is a cirrhotic liver. He is status post cholecystectomy and a small amount of central intrahepatic air. There is mild splenomegaly. He has had hernia repair with mesh and some minimal right pleural effusion. Today's CT scan shows trace pleural effusions, cirrhotic liver with portal hypertension including splenomegaly and varices. There is an abnormal configuration of small but suspicious adhesions. There is some calcified area along the abdominal wall which is related to prior surgery. His urinary bladder may be displaced to the right side of the pelvis and may be adherent to the abnormal wall thickening along the anterior abdominal wall. The colon is distended with caliber change in the region of the distal sigmoid and upper rectum. There is a large amount of stool proximal to the caliber change. They suggested a contrast enema or sigmoidoscopy. IMPRESSION: 1. Upper GI bleed -- there is blood in the nasogastric tube. He was vomiting earlier but there is no blood in the vomitus. The bleeding started after the nasogastric tube was placed. He does have small varices and portal hypertension and I believe the bleeding is from nasogastric tube trauma combined with thrombocytopenia and the portal gastropathy. He is not tachycardic so I do not think this is an active variceal bleed. 2. History of small grade 1 esophageal varices and portal gastropathy of the stomach -- this was seen on upper endoscopy in August of 2015. 3. History of cirrhosis and hepatitis C. His MELD scores have been around 12 and he has been evaluated at a transplant center in [place]. 4. Constipation and abdominal distention -- this is obstruction versus opiate-induced constipation. His last colonoscopy was five years ago and he says it did not show any polyps or anything significant. He has been resistant to any colonoscopies. PLANS: 1. Proton pump inhibitor. 2. Surgery has seen the patient and has ordered enemas and magnesium citrate; He has passed a little stool however if not helpful, please consider a Gastrografin enema and/or Relistor. The Relistor will block the effects of narcotics on the colon. 3. If endoscopy is needed (upper endoscopy or flexible sigmoidoscopy), the patient may need to have it done at [facility] . I do not think I would do an upper endoscopy at this time; however, if there is evidence of variceal bleeding (tachycardia and vomiting blood), we may have to do this urgently. Consider flexible sigmoidoscopy may be done to look at the rectosigmoid area to make sure there is not a mass there; however, with inflammation it may be riskier as far as any type of perforation concern. He also wants to hold off on any procedures if possible. Further recommendations will depend on how he does. The case was discussed with Dr. Neri too. MD WALTER Reeves/LYNNETTE /5:47 PM /6:16 PM MTDAna
[2016-05-22 19:48] LABS: BLOOD, URINE NEG (NEG); GLUCOSE,URINE NEG (NEG); KETONE, URINE NEG (NEG); NITRITE,URINE NEG (NEG)
[2016-05-22 19:53] LABS: URINE COLOR YELLOW (YELLW/STRAW)
[2016-05-22 19:54] LABS: COMMENT (UR) CULT NOT INDICATED; CULTURE IF INDICATED CULT NOT INDICATED; SQUAMOUS EPITHELIAL CELL URINE 0-5 /hpf (0-5); WBC, URINE 0-2 /hpf (0-5)
[2016-05-22 20:05] LABS: AMPHETAMINE, URINE NEG (NEG); BARBITURATES, URINE NEG (NEG)
[2016-05-22 20:11] LABS: COCAINE, URINE NEG (NEG)
[2016-05-22] MEDS: SODIUM CHLORIDE 0.9% FLUSH 10 ML FLUSH IV FLUSH SCH (21:34)
[2016-05-22] MEDS ORDERED: OCTREOTIDE INJ 500 MCG in SODIUM CHLORID 0.9% 500 ML INJ 499.5 ML IV SCH (22:45)
[2016-05-23] VITALS (26 sets, daily range): BP systolic 138–174; BP diastolic 67–88; PULSE 70–86; RESP 13–27; TEMP 97.2–99.2; O2SAT 92–97
[2016-05-23 00:33] LABS: HEMATOCRIT 35.4 % (39.0-51.0)
[2016-05-23] MEDS: NS + KCL 20 MEQ INJ 1,000 ML IV SCH ×2 (03:13→15:19)
[2016-05-23] MEDS: CHLORHEXIDINE GLUCONATE 2 % 1 PACK (2 CLOTHS)(taper/protocol) TOPICAL SCH (04:00)
[2016-05-23 06:43] LABS: BICARBONATE 25.2 MEQ/L (21.0-32.0)
[2016-05-23 06:46] LABS: AUTOMATED NEUTROPHIL # 5.7 TH/MM3 (1.8-7.7); BASOPHIL # 0.4 TH/MM3 (0-0.2); BASOPHIL % 4.7 % (0.0-2.0); EOSINOPHIL # 0.2 TH/MM3 (0-0.4); HEMATOCRIT 34.7 % (39.0-51.0); LYMPH % 11.1 % (9.0-44.0); LYMPHOCYTE # 0.9 TH/MM3 (1.0-4.8); MEAN CELL VOLUME 95.4 FL (80.0-100.0); MEAN CORPUSCULAR HGB CONC 33.5 % (32.0-36.0); MONO % 8.8 % (0.0-8.0); NEUT % 72.4 % (16.0-70.0); PLATELET COUNT 77 TH/MM3 (150-450); RED BLOOD COUNT 3.63 MIL/MM3 (4.50-5.90); RED CELL DISTRIBUTION WIDTH 14.3 % (11.6-17.2); WHITE BLOOD COUNT 7.9 TH/MM3 (4.0-11.0)
[2016-05-23 07:00] LABS: HEMO FLAGS AUTO DIFF
[2016-05-23 07:14] LABS: PLATELET ESTIMATE SMEAR LOW (NORMAL); PLATELET MORPHOLOGY NORMAL (NORMAL); SCAN/DIFF AUTO DIFF CONFIRMED
[2016-05-23] MEDS ORDERED: MAGNESIUM CITRATE SOLN 300 ML BTL NG ONE (09:00)
[2016-05-23] MEDS: SODIUM CHLORIDE 0.9% FLUSH 10 ML FLUSH IV FLUSH SCH ×2 (09:08→21:00)
--- NOTE | 2016-05-23 10:29 | HHI.PR ---
Subjective Remarks Patient seen and examined today with Dr. Neri. Patient still appears very miserable. He has not had any success with bowel movement this time,, despite mag citrate, enemas. Objective Vitals Vital Signs Date Time Temp Pulse Resp B/P Pulse Ox O2 Delivery O2 Flow Rate FiO2 05/23/16 08:00 98.7 05/23/16 07:50 92 Nasal Cannula 2.00 05/23/16 07:00 70 18 156/88 05/23/16 06:00 82 05/23/16 06:00 78 16 147/79 94 05/23/16 05:00 76 18 142/67 05/23/16 04:00 98.7 76 18 150/81 94 05/23/16 04:00 80 05/23/16 03:00 76 17 147/73 05/23/16 02:00 80 17 154/82 05/23/16 02:00 80 05/23/16 01:00 80 18 156/85 05/23/16 00:00 78 05/23/16 00:00 99.2 78 18 155/79 94 05/22/16 23:11 84 14 167/81 94 05/22/16 22:00 76 05/22/16 22:00 76 15 155/83 97 05/22/16 21:00 82 12 142/68 94 05/22/16 20:22 84 15 156/77 93 05/22/16 20:00 88 05/22/16 20:00 98.6 88 17 90 05/22/16 19:25 94 Nasal Cannula 2.00 05/22/16 19:00 84 11 148/73 93 05/22/16 18:00 81 19 149/73 93 05/22/16 18:00 76 05/22/16 17:00 81 17 144/76 96 05/22/16 16:00 76 05/22/16 16:00 98.6 77 14 147/76 92 05/22/16 15:15 94 21 05/22/16 15:10 79 14 150/78 94 Room Air 05/22/16 14:00 81 16 143/66 95 Room Air 05/22/16 13:15 16 05/22/16 12:23 98.2 87 16 158/84 94 I/O 05/22/16 05/22/16 05/22/16 05/23/16/15/17 4/15/17 07:00 15:00 23:00 07:00 15:00 23:00 Intake Total 1530 ml Output Total 1150 ml Balance 380 ml Intake Oral 0 ml IV Total 1530 ml Output Urine Total 850 ml Gastric Drainage Total 300 ml # Voids 2 # Bowel Movements 0 Result Diagram: 05/23/1615 05/23/16 0615 Objective Remarks GENERAL: Well-developed, well-nourished, in no acute distress. alert and orientated HEENT: Head is normocephalic without any lesions or masses noted. Facial features are symmetric. Eyes: Extraocular muscles are intact. Conjunctivae were clear. NG tube in place NECK: Supple without any masses. Trachea midline no deviation. No JVD, no bruits are appreciated CARDIAC: Regular rhythm, regular rate. S1/S2 are heard. 2/6 ejection murmur, no gallops or rubs. LUNGS: Clear to auscultation bilaterally. No wheeze, rhonchi or rales. No use of accessory muscles on inspiration or expiration. ABDOMEN: Soft, mildly distended with diffuse tenderness. Bowel sounds heard in all 4 quadrants. No organomegaly or masses. Negative rebound, negative guarding EXTREMITIES: No edema, pulses are equal bilaterally. No cyanosis or clubbing NEUROLOGY: Mood and affect appear appropriate. Cranial nerves II through XII grossly intact. Moving all extremities, speech is clear Urinary Catheter: No Vascular Central Line Catheter: No A/P Assessment and Plan This is a 55 year-old man who presents with worsening abdominal pain and distention, constipation, nausea and vomiting. CT scan that showed abnormal bowel gas pattern with dilatation of the ascending and transverse colon of multiple air-fluid levels and moderate amount of stool. Colonic obstruction: Possible narcotic-induced obstipation/constipation patient was admitted to ICU for close monitoring. Keep nothing by mouth, continue IV fluids. Patient was started on octreotide IV last evening. Continue NGT for decompression. General surgery indicates that this is classic opiate-induced obstipation. Recommending bowel prep, enemas until improved. 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 Indicated if conservative measures do not work would consider doing Gastrografin enema or Relistor. Ordered for a Gastrografin enema to be performed, however unable perform in [place] on the weekend. Radiologist recommended performing KUB. Discussed with radiologist Dr Oviedo, who indicated that there was no stool noted in the colon and colon distention has significant improved. He indicates that there is no need for Gastrografin enema at this time. Elevated lactic acid secondary to above. Monitor GI bleed likely related to NGT trauma with a history of liver cirrhosis and thrombocytopenia. Hemoglobin does appear to continue to fall. Patient continued on Protonix IV and started on octreotide IV. Elevated AST with a history of hepatitis C cirrhosis. Restart outpatient medications as appropriate Hypertension. Hold BP medications for now. Monitor with as needed antihypertensives. DVT prophylaxis with SCD and early ambulation. Chemical prophylaxis continue indicated at this time Written by Scott Cage, acting as scribe for Dr. Neri on 05/23/16 at 11: 00. This note was transcribed by scribe Scott Cage. I, Dr. Joey Neri personally performed the history, physical exam, and medical decision making; and confirmed the accuracy of the information in the transcribed note. Authenticated by Dr. Joey Neri on 05/23/16 at 14:04. Scott Cage May 23, 2016 10:29 Joey Neri MD May 23, 2016 14:01
[2016-05-23 11:59] LABS: HEMATOCRIT 36.2 % (39.0-51.0)
--- NOTE | 2016-05-23 12:37 | RADHPO ---
EXAM DATE/TIME: 05/23/2016 12:17 [facility] COMPARISON: CT ABDOMEN & PELVIS W/O CONTRAST, May 22, 2016, 12:51. INDICATIONS : Obstruction MEDICAL HISTORY : None. SURGICAL HISTORY : None. ENCOUNTER: Subsequent ACUITY: 4 - 6 days PAIN SCORE: 7/10 LOCATION: Bilateral abdomen FINDINGS: The bowel gas is nonspecific. There are no signs of obstruction or free air for technique. No defini te calcified stones are identified for technique. Compresses the CT examination from one day ago ther e is significant reduction in the amount of stool in the patient's colon. Very little stool is identi fied and the colon does not appear to be distended. CONCLUSION: Nonspecific abdomen. Tucker Oviedo MD on May 23, 2016 at 12:31 Board Certified Radiologist. This report was verified electronically.
--- NOTE | 2016-05-23 13:35 | HHI.GIFU ---
GI Follow-up Note Consult Follow-up Subjective: Patient laying in bed. No blood in NG. Minimal BM's-no blood. still with abd distension but KUB is non-specific. Octreotide started last PM. Objective: PHYSICAL EXAMINATION: Vitals signs stable No fever . CHEST: Chest is clear to auscultation and percussion. CARDIAC: Regular rate and rhythm with no murmur gallop or rubs. ABDOMEN: distended, mild tender; no hepatosplenomegaly; bowel sounds are present in all four quadrants but minimal EXTREMITIES: No edema. SKIN: no jaundice. LIVERY CAR DRIVER: No focal deficits; alert and oriented times three. Available Data (labs, X- Rays, Procedues) : Hbg dropped but now stable at 12. KUB reviewed ASSESSMENT/PLAN: 1. Upper GI bleed (blood in NG)- suspect NG trauma to the portal gastropathy rather than varices. No blood in NG this am 2. 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 Cirrhosis and Hep C 4. Constipation and abd distension-obstruction vs opiate induced constipation. KUB shows no obstruction PLAN: 1. Cont PPI. Would wean off Octreotide--may make his constipation worse. If he has re-bleeding we can restart it 2. Surgery has seen the pt and has ordered enemas and mag citrate. Radiology feels he does not need a Gastrografin enema based on KUB. will try Relistor- side effects d/w pt 3. If endoscopy is needed (EGD/Flex sig) he will need to be transferred to the the main hospital It was a pleasure seeing Juaquin Chaidez Thank you for this consult. It was a pleasure seeing Juaquin Chaidez Thank you for this consult. Entered by: Feliz Hsieh MD May 23, 2016 13:35
[2016-05-23 13:53] LABS: LACTIC ACID GHOST NOT REPORTABLE
[2016-05-23] MEDS ORDERED: METHYLNALTREXONE BROMIDE 12 MG/0.6 ML VIAL SQ ONE (15:00)
[2016-05-23] MEDS: PANTOPRAZOLE SODIUM 40 MG VIAL IV PUSH SCH (15:19)
[2016-05-23] MEDS ORDERED: OCTREOTIDE INJ 500 MCG in SODIUM CHLORID 0.9% 500 ML INJ 499.5 ML IV SCH (23:00)
[2016-05-24] VITALS (16 sets, daily range): BP systolic 110–153; BP diastolic 51–76; PULSE 64–80; RESP 9–22; TEMP 97.8–99; O2SAT 92–96
[2016-05-24] MEDS: CHLORHEXIDINE GLUCONATE 2 % 1 PACK (2 CLOTHS)(taper/protocol) TOPICAL SCH (03:50)
[2016-05-24] MEDS: NS + KCL 20 MEQ INJ 1,000 ML IV SCH (03:50)
--- NOTE | 2016-05-24 05:13 | PD.CAR.PN ---
CVT Progress Note Subjective/Hospital Course: Patient moderately distended yesterday Had MgCitrate and laxatives and had several large BMs No signs of mechanical LBO but rather, narcotic constipation. After he evacuates, patient will need full colonoscopy to R/O any lesions as an outpatient Would Dc patient today Signing off J Objective: Vital Signs Date Time Temp Pulse Resp B/P Pulse Ox O2 Delivery O2 Flow Rate FiO2 05/24/16 04:00 64 19 138/75 94 05/24/16 03:42 66 20 148/74 05/24/16 03:07 70 9 120/60 05/24/16 02:00 68 22 139/71 95 05/24/16 02:00 68 05/24/16 01:00 74 16 150/67 94 05/24/16 00:00 70 05/24/16 00:00 97.8 70 18 142/69 94 05/23/16 23:00 70 20 151/69 97 05/23/16 22:00 95 Nasal Cannula 3.00 05/23/16 22:00 74 16 161/74 95 05/23/16 22:00 74 05/23/16 21:00 98.7 72 22 153/79 05/23/16 20:10 94 Nasal Cannula 2.00 05/23/16 20:00 74 22 160/78 05/23/16 20:00 79 05/23/16 19:00 74 17 147/72 05/23/16 18:00 76 23 153/76 05/23/16 18:00 76 05/23/16 17:18 74 13 157/79 05/23/16 16:00 74 05/23/16 16:00 97.2 74 21 166/88 94 05/23/16 15:00 74 22 163/81 05/23/16 14:00 80 23 165/82 05/23/16 14:00 80 05/23/16 13:01 86 27 174/84 05/23/16 12:00 99.0 74 22 154/83 93 05/23/16 12:00 74 05/23/16 11:00 80 17 154/81 05/23/16 10:00 76 05/23/16 10:00 76 13 138/85 05/23/16 09:00 74 16 155/78 93 05/23/16 08:00 70 19 140/78 05/23/16 08:00 93 Nasal Cannula 3.00 05/23/16 08:00 98.7 05/23/16 08:00 74 05/23/16 07:50 92 Nasal Cannula 2.00 05/23/16 07:00 70 18 156/88 05/23/16 06:00 82 05/23/16 06:00 78 16 147/79 94 Result Diagram: 05/23/16 1145 05/23/16 0615 Nicolasa Cruz MD May 24, 2016 05:13
[2016-05-24 07:16] LABS: POTASSIUM 3.7 MEQ/L (3.5-5.1)
[2016-05-24 07:21] LABS: BICARBONATE 23.2 MEQ/L (21.0-32.0); MAGNESIUM 2.7 MG/DL (1.5-2.5)
[2016-05-24 07:38] LABS: BASOPHIL # 0.3 TH/MM3 (0-0.2); BASOPHIL % 4.3 % (0.0-2.0); EOSINOPHIL # 0.3 TH/MM3 (0-0.4); EOSINOPHIL % 4.2 % (0.0-4.0); HEMATOCRIT 33.8 % (39.0-51.0); LYMPHOCYTE # 0.8 TH/MM3 (1.0-4.8); MEAN CELL VOLUME 94.2 FL (80.0-100.0); MEAN CORPUSCULAR HEMOGLOBIN 30.6 PG (27.0-34.0); MEAN CORPUSCULAR HGB CONC 32.5 % (32.0-36.0); MONO % 10.5 % (0.0-8.0); PLATELET COUNT 88 TH/MM3 (150-450); RED BLOOD COUNT 3.59 MIL/MM3 (4.50-5.90); RED CELL DISTRIBUTION WIDTH 13.7 % (11.6-17.2); WHITE BLOOD COUNT 7.1 TH/MM3 (4.0-11.0)
[2016-05-24 07:44] LABS: HEMO FLAGS AUTO DIFF
[2016-05-24 08:22] LABS: PLATELET ESTIMATE SMEAR LOW (NORMAL); PLATELET MORPHOLOGY NORMAL (NORMAL); SCAN/DIFF AUTO DIFF CONFIRMED
[2016-05-24] MEDS: SODIUM CHLORIDE 0.9% FLUSH 10 ML FLUSH IV FLUSH SCH (08:22)
--- NOTE | 2016-05-24 10:47 | RADHPO ---
EXAM DATE/TIME: 05/24/2016 10:09 [facility] COMPARISON: ABDOMEN KUB ONLY, May 23, 2016, 12:17. INDICATIONS : Follow up obstruction. MEDICAL HISTORY : None. SURGICAL HISTORY : None. ENCOUNTER: Subsequent ACUITY: 3 days PAIN SCORE: 4/10 LOCATION: Bilateral lower quadrant FINDINGS: The bowel gas is nonspecific. There are no signs of obstruction or free air for technique there is o ne loop of bowel on the left side of the abdomen slightly prominent difficult to ascertain whether th is is larger small bowel with nonspecific air-fluid levels. No definite calcified stones are identifi ed for technique. Very little stool is identified not significantly changed. CONCLUSION: Nonspecific abdomen possible slight localized ileus on the left. Tucker Oviedo MD on May 24, 2016 at 10:42 Board Certified Radiologist. This report was verified electronically.
--- NOTE | 2016-05-24 10:59 | HHI.PR ---
Subjective Remarks Patient seen and examined today with Dr. Neri. Patient states that he is doing much better. States that he had a wonderful evening of bowel movements. Rather explosive. He indicates he is no longer scratching abdominal pain. His abdomen is much softer. He is very eager to go home now. Objective Vitals Vital Signs Date Time Temp Pulse Resp B/P Pulse Ox O2 Delivery O2 Flow Rate FiO2 05/24/16 10:00 67 12 118/56 93 05/24/16 10:00 68 05/24/16 09:00 70 13 139/66 94 05/24/16 08:00 65 19 151/72 95 05/24/16 08:00 64 05/24/16 07:00 96 Nasal Cannula 2.00 05/24/16 07:00 98.7 72 9 144/73 96 05/24/16 06:00 64 05/24/16 06:00 64 21 110/51 93 05/24/16 05:00 66 20 143/76 95 05/24/16 04:00 64 05/24/16 04:00 98.8 64 19 138/75 94 05/24/16 03:42 66 20 148/74 05/24/16 03:07 70 9 120/60 05/24/16 02:00 68 22 139/71 95 05/24/16 02:00 68 05/24/16 01:00 74 16 150/67 94 05/24/16 00:00 70 05/24/16 00:00 97.8 70 18 142/69 94 05/23/16 23:00 70 20 151/69 97 05/23/16 22:00 95 Nasal Cannula 3.00 05/23/16 22:00 74 16 161/74 95 05/23/16 22:00 74 05/23/16 21:00 98.7 72 22 153/79 05/23/16 20:10 94 Nasal Cannula 2.00 05/23/16 20:00 74 22 160/78 05/23/16 20:00 79 05/23/16 19:00 74 17 147/72 05/23/16 18:00 76 23 153/76 05/23/16 18:00 76 05/23/16 17:18 74 13 157/79 05/23/16 16:00 74 05/23/16 16:00 97.2 74 21 166/88 94 4/15/17 15:00 74 22 163/81 05/23/16 14:00 80 23 165/82 05/23/16 14:00 80 05/23/16 13:01 86 27 174/84 05/23/16 12:00 99.0 74 22 154/83 93 05/23/16 12:00 74 05/23/16 11:00 80 17 154/81 I/O 05/23/16 05/23/16 05/23/16 05/24/16 05/24/16 05/24/16 07:00 15:00 23:00 07:00 15:00 23:00 Intake Total 1530 ml 767 ml 583 ml Output Total 1150 ml 2760 ml 950 ml Balance 380 ml -1993 ml -367 ml Intake Oral 0 ml 0 ml 0 ml IV Total 1530 ml 767 ml 583 ml Output Urine Total 850 ml 2700 ml 800 ml Stool Total 60 ml Gastric Drainage Total 300 ml 0 ml 150 ml # Voids 2 # Bowel Movements 0 1 6 Result Diagram: 05/24/1640 05/24/1640 Objective Remarks GENERAL: Well-developed, well-nourished, in no acute distress. alert and orientated HEENT: Head is normocephalic without any lesions or masses noted. Facial features are symmetric. Eyes: Extraocular muscles are intact. Conjunctivae were clear. NG tube in place NECK: Supple without any masses. Trachea midline no deviation. No JVD, no bruits are appreciated CARDIAC: Regular rhythm, regular rate. S1/S2 are heard. 2/6 ejection murmur, no gallops or rubs. LUNGS: Clear to auscultation bilaterally. No wheeze, rhonchi or rales. No use of accessory muscles on inspiration or expiration. ABDOMEN: Soft, nondistended, nontender. Bowel sounds heard in all 4 quadrants. No organomegaly or masses. Negative rebound, negative guarding EXTREMITIES: No edema, pulses are equal bilaterally. No cyanosis or clubbing NEUROLOGY: Mood and affect appear appropriate. Cranial nerves II through XII grossly intact. Moving all extremities, speech is clear Urinary Catheter: No Vascular Central Line Catheter: No A/P Assessment and Plan This is a 55 year-old man who presents with worsening abdominal pain and distention, constipation, nausea and vomiting. CT scan that showed abnormal bowel gas pattern with dilatation of the ascending and transverse colon of multiple air-fluid levels and moderate amount of stool. Colonic obstruction: Significantly improved after 7 bowel movements last night. Possible narcotic-induced obstipation/constipation patient was admitted to ICU for close monitoring. We'll start clear liquid diet today, stop IV fluids. If patient tolerates diet will anticipate discontinuing NG tube. General surgery evaluated patient and indicated that this was classic opiate-induced obstipation. Cell Maker agreed with opiate-induced obstipation. Status post Relistor, enemas, magnesium citrate Elevated lactic acid secondary to above. Resolved GI bleed likely related to NGT trauma with a history of liver cirrhosis and thrombocytopenia. Hemoglobin remained stable. Patient continued on Protonix IV. Elevated AST with a history of hepatitis C cirrhosis. Restart outpatient medications as appropriate Hypertension. Hold BP medications for now. Monitor with as needed antihypertensives. DVT prophylaxis with SCD and early ambulation. Chemical prophylaxis continue indicated at this time Written by Scott Cage, acting as scribe for Dr. Neri on 05/24/16 at 10: 59. This note was transcribed by scribe Scott Cage. I, Dr. Joey Neri personally performed the history, physical exam, and medical decision making; and confirmed the accuracy of the information in the transcribed note. Authenticated by Dr. Joey Neri on 05/24/16 at 15:45. Discharge Planning If patient tolerates clear liquid diet, can anticipate removing NG tube and likely discharge patient later this afternoon. Scott Cage May 24, 2016 10:59 Joey Neri MD May 24, 2016 15:45
--- NOTE | 2016-05-24 13:06 | HHI.GIFU ---
GI Follow-up Note Consult Follow-up Subjective: Patient laying in bed comfortably. NG out. tolerating diet. No gi bleeding. Multiple BM's after Relistor Objective: PHYSICAL EXAMINATION: 153/75-75-16 No fever HEENT: Pupils round and reactive to light; normocephalic; atraumatic; no jaundice. Throat is clear. NECK: Neck is supple, no JVD, no lymphadenopathy. CHEST: Chest is clear to auscultation and percussion. CARDIAC: Regular rate and rhythm with no murmur gallop or rubs. ABDOMEN: Mush less distended, nontender; no hepatosplenomegaly; bowel sounds are present in all four quadrants.. SKIN: no jaundice. HEAD OF MARKETING ANALYTICS: No focal deficits; alert and oriented times three. Available Data (labs, X- Rays, Procedues) : Hgb 11.0 KUB reviewed ASSESSMENT/PLAN: 1. Upper GI bleed (blood in NG)- suspect NG trauma to the portal gastropathy rather than varices. No overt bleeding seen 2. 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 Cirrhosis and Hep C 4. Constipation and abd distension-obstruction vs opiate induced constipation. KUB shows no obstruction. Suspect opiate induced since Relistor worked PLAN: 1. Advance diet 2. Cont PPI 3. avoid narcotics 4. Outpt Colon+/-EGD 5. Will see again as outpt It was a pleasure seeing Juaquin Chaidez Thank you for this consult. Entered by: Feliz Hsieh MD May 24, 2016 13:06
--- NOTE | 2016-05-24 14:19 | HHI.DCPOC ---
Discharge Care Plan Diagnosis: (1) Large bowel obstruction (2) Constipation Goals to Promote Your Health * To prevent worsening of your condition and complications * To maintain your health at the optimal level Directions to Meet Your Goals Take your medications as prescribed Follow your dietary instruction Follow activity as directed Keep your appointments as scheduled Take your immunizations and boosters as scheduled If your symptoms worsen call your PCP, if no PCP go to Urgent Care Center or Emergency Room Smoking is Dangerous to Your Health. Avoid second hand smoke Call the 24-hour hour crisis hotline for domestic abuse at Scott Cage May 24, 2016 14:19
--- NOTE | 2016-05-24 14:28 | HHI.DS ---
Discharge Summary Admission Date May 22, 2016 at 14:19 Discharge Date: May 24, 2016 Admitting Diagnosis large bowel obstruction (1) Large bowel obstruction ICD Code: K56.60 Diagnosis: Principal (2) Constipation ICD Code: K59.00 Diagnosis: Principal (3) Upper GI bleed ICD Code: K92.2 (4) Cirrhosis ICD Code: K74.60 (5) Thrombocytopenia ICD Code: D69.6 Procedures NG tube placement Brief History - From Admission This is a 55 year-old man who returns to the emergency department complaining of worsening abdominal pain and distention. States he's not had a bowel movement for the past 5 or 6 days ever since he took oxycodone as prescribed by his dentist. He's had worsening severe diffuse abdominal pain. He went to the emergency room last night and had a CT scan that showed abnormal bowel gas pattern with dilatation of the ascending and transverse colon of multiple air- fluid levels and moderate amount of stool. He was treated yesterday with an enema and had a small bowel movement and offered admission which he declined. He was then given a prescription for GoLYTELY. He states he started out last night but then started having vomiting and worsening abdominal distention and so he returned today. He usually has regular bowel movement because he is on lactulose. His only abdominal surgery was a previous open cholecystectomy. Gen. surgery was contacted and recommended [place] admission and decompression. When NGT was inserted, he vomited the previously ingested GoLYTELY but later on he had bloody return. Patient states he had EGD 3 months ago which showed small varices. Also contacted his talend developer who will see him in consult CBC/BMP: 05/24/16 0640 05/24/16 0640 Significant Findings Laboratory Tests Test 05/22/16 05/22/16 05/22/16 05/23/16 12:40 12:50 18:40 00:15 Platelet Count 94 TH/MM3 (150-450) Neutrophils (%) (Auto) 80.7 % (16.0-70.0) Lymphocytes (%) (Auto) 7.3 % (9.0-44.0) Monocytes (%) (Auto) 9.2 % (0.0-8.0) Lymphocytes # (Auto) 0.4 TH/MM3 (1.0-4.8) Platelet Estimate LOW (NORMAL) Prothrombin Time 12.8 SEC (9.8-11.6) Estimat Glomerular Filtration 78 ML/MIN (>89) Rate Total Bilirubin 2.5 MG/DL (0.2-1.0) Aspartate Amino Transf 79 U/L (15-37) (AST/SGOT) Albumin 3.2 GM/DL (3.4-5.0) Lactic Acid Level 2.9 mmol/L (0.4-2.0) Urine Protein 100 mg/dL (NEG-TRACE) Urine Opiates Screen POS (NEG) Urine Benzodiazepines Screen POS (NEG) Hemoglobin 12.1 GM/DL (13.0-17.0) Hematocrit 35.4 % (39.0-51.0) Test 05/23/16 05/23/16 05/24/16 06:15 11:45 06:40 Red Blood Count 3.63 MIL/MM3 3.59 MIL/MM3 (4.50-5.90) (4.50-5.90) Hemoglobin 11.6 GM/DL 12.0 GM/DL 11.0 GM/DL (13.0-17.0) (13.0-17.0) (13.0-17.0) Hematocrit 34.7 % 36.2 % 33.8 % (39.0-51.0) (39.0-51.0) (39.0-51.0) Platelet Count 77 TH/MM3 88 TH/MM3 (150-450) (150-450) Neutrophils (%) (Auto) 72.4 % (16.0-70.0) Monocytes (%) (Auto) 8.8 % (0.0-8.0) 10.5 % (0.0-8.0) Basophils (%) (Auto) 4.7 % (0.0-2.0) 4.3 % (0.0-2.0) Lymphocytes # (Auto) 0.9 TH/MM3 0.8 TH/MM3 (1.0-4.8) (1.0-4.8) Basophils # (Auto) 0.4 TH/MM3 0.3 TH/MM3 (0-0.2) (0-0.2) Platelet Estimate LOW (NORMAL) LOW (NORMAL) Estimat Glomerular Filtration 78 ML/MIN (>89) Rate Random Glucose 114 MG/DL (74-106) Calcium Level 7.5 MG/DL 7.7 MG/DL (8.5-10.1) (8.5-10.1) Lactic Acid Level 2.3 mmol/L (0.4-2.0) Eosinophils (%) (Auto) 4.2 % (0.0-4.0) Chloride Level 112 MEQ/L (98-107) Magnesium Level 2.7 MG/DL (1.5-2.5) PE at Discharge GENERAL: Well-developed, well-nourished, in no acute distress. alert and orientated HEENT: Head is normocephalic without any lesions or masses noted. Facial features are symmetric. Eyes: Extraocular muscles are intact. Conjunctivae were clear. NG tube in place NECK: Supple without any masses. Trachea midline no deviation. No JVD, no bruits are appreciated CARDIAC: Regular rhythm, regular rate. S1/S2 are heard. 2/6 ejection murmur, no gallops or rubs. LUNGS: Clear to auscultation bilaterally. No wheeze, rhonchi or rales. No use of accessory muscles on inspiration or expiration. ABDOMEN: Soft, nondistended, nontender. Bowel sounds heard in all 4 quadrants. No organomegaly or masses. Negative rebound, negative guarding EXTREMITIES: No edema, pulses are equal bilaterally. No cyanosis or clubbing NEUROLOGY: Mood and affect appear appropriate. Cranial nerves II through XII grossly intact. Moving all extremities, speech is clear Hospital Course 55-year-old male with known history of alcohol cirrhosis, coagulopathy , thrombocytopenia, chronic pain who presented to hospital because of abdominal pain distention. Patient had not had a bowel movement 56 days there since he took his oxycodone prescribed by his dentist. Patient had x-ray studies performed which did indicate significant: Obstruction with large amount of feces. General surgery and gastroenterology were consulted. As indicated by general surgery at this is classic narcotic induced constipation. Recommended magnesium citrate and enemas for management. Patient had NG tube placed for decompression, however he had significant irritation from the NG tube and had kennedi blood coming from NG tube. Patient was started on Protonix IV. GI consultation was performed. Hemoglobin was monitored and remained stable. The patient underwent magnesium citrate and enemas without any benefit or any fecal output. It was indicated by GI physician that the patient undergo possible Gastrografin enema versus use of Relistor. Due to the inability perform Gastrografin enema here in [place]. Patient was given Relistor with significant outcome. had 7 bowel movements throughout the night. He states that is rather explosive and he is no longer experiencing abdominal pain or distention. Patient wanted the NG tube removed so he can eat. He is very eager to go home at this time. The patient's hemoglobin has remained stable. He has had significant amount of stool output. Is no longer having signs of any colonic obstruction. Follow-up x-rays have confirmed resolution of obstruction. Will plan discharge home accordingly. Pt Condition on Discharge: Stable Discharge Disposition: Discharge Home Discharge Time: > 30 minutes Discharge Instructions DIET: Follow Instructions for: Heart Healthy Diet Activities you can perform: Regular-No Restrictions Activities to Avoid: Driving for 24 hrs Follow up Referrals: Gastroenterology - 2 Weeks with Feliz Walker MD PCP Follow-up - 1 Week Changed Medications: Lactulose Liq (Lactulose Liq) 10 Gm/15 Ml Soln 30 ML PO Q6H Titrate to 3 loose stools a day PRN CONSTIPATION #3000 Ref 0 ML ( Medication details modified) Continued Medications: Alprazolam (Xanax) 0.5 Mg Tab 0.5 MG PO Q6H PRN ANXIETY Ref 0 TAB Amlodipine (Norvasc) 5 Mg Tab 5 MG PO DAILY Blood Pressure Management #30 Ref 0 TAB Furosemide (Lasix) 20 Mg Tab 20 MG PO DAILY #30 Ref 0 TAB Oxycodone (Oxycodone) 10 Mg Tab 10 MG PO Q4H PRN PAIN Ref 0 TAB Additional Information Written by Scott Cage, acting as scribe for Dr. Neri on 05/24/16 at 14: 24. This note was transcribed by scribe Scott Cage. I, Dr. Joey Neri personally performed the history, physical exam, and medical decision making; and confirmed the accuracy of the information in the transcribed note. Authenticated by Dr. Joey Neri on 05/24/16 at 15:47. Scott Cage May 24, 2016 14:28 Joey Neri MD May 24, 2016 15:47
[2016-05-24] MEDS ORDERED: LACT10SO PO (15:46)
== END 2016-05-24 15:10 | disposition home or self-care (01) | DRG 392 ==
LOC: PHED 12:16 → PHEDA 14:19 → PHICU 15:45
PROVIDERS: ADMIT Internal Medicine; ATTEND Internal Medicine
DX: K59.03 Drug induced constipation (principal); J90 Pleural effusion, not elsewhere classified; D68.9 Coagulation defect, unspecified; I85.00 Esophageal varices without bleeding; K76.6 Portal hypertension; D69.6 Thrombocytopenia, unspecified; K70.31 Alcoholic cirrhosis of liver with ascites; K92.2 Gastrointestinal hemorrhage, unspecified; T40.2X5A Adverse effect of other opioids, initial encounter; I10 Essential (primary) hypertension; F17.200 Nicotine dependence, unspecified, uncomplicated; B19.20 Unspecified viral hepatitis C without hepatic coma; K31.89 Other diseases of stomach and duodenum; R60.9 Edema, unspecified; F11.10 Opioid abuse, uncomplicated; G89.29 Other chronic pain
CPT/HCPCS: 74000; 74020; 74176; 74177; 80048; 80053; 80307; 81001; 83605; 83690; 83735; 85014; 85018; 85025; 85610; 85730; 86850; 86900; 86901; 87641; 96361; 96374; 96375; C9113; J1885; J2060; J2212; J2250; J2270; J2354; J2405; J3480; J7040; J7050; Q9963; Q9967